=== PATIENT | female | born 1995 | race Caucasian/White ===

== ENCOUNTER 2021-12-14 12:27 | Emergency (ER) | payer OTHER ==
[~2021-12-14] VITALS: Ht 177.8 cm; Wt 105.0 kg
[2021-12-14 16:05] LABS: BASOPHILS % 0.1 % (0.0-2.0); EOSINOPHILS % 0.2 % (0.0-5.0); HEMOGLOBIN. 11.6 g/dL (12.0-16.0); LYMPHOCYTES % 12.9 % (20.0-50.0); MEAN CORPUSCULAR HEMOGLOBIN 26.9 pg (28.0-32.0); MEAN CORPUSCULAR VOLUME 80.9 fL (81.0-99.0); MEAN PLATELET VOLUME 6.8 fl (7.4-10.4); MONOCYTES % 7.7 % (2.0-8.0); NEUTROPHILS % 79.1 % (40.0-76.0); PLATELET 387 x1000/uL (130-400); RED BLOOD CELL COUNT 4.32 mill/uL (4.2-5.4); RED CELL DISTRIBUTION WIDTH 15.1 % (11.6-14.6)
[2021-12-14 16:08] LABS: CHLORIDE 105 mEq/L (98-107)
[2021-12-14] MEDS ORDERED: CEPH500C2 MT (17:16)
[2021-12-14 17:42] VITALS: BP 112/78
== END 2021-12-14 17:45 | disposition home or self-care (01) ==
LOC: ER 12:27
DX: R21 Rash and other nonspecific skin eruption (principal); R50.9 Fever, unspecified
CPT/HCPCS: 36415; 80053; 81025; 85025; 99283